=== PATIENT | male | born 1970 | race African-American/Black ===

== ENCOUNTER 2017-07-17 21:44 | Emergency (ER) | payer OTHER ==
[2017-07-17] MEDS ORDERED: KETOROLAC TROMETHAMINE 60 MG/2 ML SDV IM ONE (22:50)
[2017-07-17] MEDS ORDERED: OXYCODONE-ACETAMINOPHEN 5-325 MG TABLET PO ONE (22:51)
--- NOTE | 2017-07-17 22:58 | ER Document Report ---
ED General - General Chief Complaint: Toothache Stated Complaint: TOOTHACHE Time Seen by Provider: 07/17/17 22:19 Mode of Arrival: Ambulatory Information source: Patient, Relative TRAVEL OUTSIDE OF THE [place] IN LAST 30 DAYS: No - HPI Patient complains to provider of: Toothache Onset: Other - 3 days ago Onset/Duration: Gradual, Persistent, Worse Severity: Severe Associated symptoms: None Exacerbated by: Denies Relieved by: Denies Similar symptoms previously: No Recently seen / treated by doctor: No Notes: Patient is retired after 26 years. He recently moved here from [place]. He states he does not have a doctor or dentist here. Patient denies any allergies. He states he has pain to his right lower right tooth where he had a gold cap placed at least 4 years ago. No fevers no facial swelling - Related Data Allergies/Adverse Reactions: No Known Allergies Allergy (Unverified 07/17/17 21:47) Past Medical History - General Information source: Patient, Relative - Social History Smoking Status: Never Smoker Frequency of alcohol use: Social Drug Abuse: None Lives with: Family Family History: Reviewed & Not Pertinent Patient has suicidal ideation: No - Medical History Medical History: Negative Review of Systems - Review of Systems Constitutional: No symptoms reported EENT: No symptoms reported Cardiovascular: No symptoms reported Respiratory: No symptoms reported Gastrointestinal: No symptoms reported Genitourinary: No symptoms reported Male Genitourinary: No symptoms reported Musculoskeletal: No symptoms reported Skin: No symptoms reported Hematologic/Lymphatic: No symptoms reported Neurological/Psychological: No symptoms reported Physical Exam - Vital signs Vitals: Temp Pulse BP Pulse Ox 98.8 F 70 150/94 H 96 07/17/17 21:49 07/17/17 21:49 07/17/17 21:49 07/17/17 21:49 - Notes Notes: PHYSICAL EXAMINATION: GENERAL: Well-appearing, well-nourished and in no acute distress. HEAD: Atraumatic, normocephalic. EYES: Pupils equal round and reactive to light, extraocular movements intact, sclera anicteric, conjunctiva are normal. ENT: Nares patent, oropharynx clear without exudates. Moist mucous membranes. She has pain at tooth #30 it does have a cold. There is no gingival inflammation abscess formation or open wound. NECK: Normal range of motion, supple without lymphadenopathy LUNGS: Breath sounds clear to auscultation bilaterally and equal. No wheezes rales or rhonchi. HEART: Regular rate and rhythm without murmurs ABDOMEN: Soft, nontender, nondistended abdomen. No guarding, no rebound. No masses appreciated. Musculoskeletal: Normal range of motion, no pitting or edema. No cyanosis. NEUROLOGICAL: Cranial nerves grossly intact. Normal speech, normal gait. Normal sensory, motor exams PSYCH: Normal mood, normal affect. SKIN: Warm, Dry, normal turgor, no rashes or lesions noted. Course - Re-evaluation Re-evalutation: 07/17/17 23:22 Dr. Hanks did a dental block. Please see his note for details. - Vital Signs Vital signs: Temp Pulse Resp BP Pulse Ox 98.8 F 70 150/94 H 96 07/17/17 21:49 07/17/17 21:49 07/17/17 21:49 07/17/17 21:49 Discharge - Discharge Clinical Impression: Toothache Disposition: HOME, SELF-CARE Instructions: Oral Narcotic Medication ([facility]), Penicillin V K ([facility]), Toothache ( [facility]) Additional Instructions: If you have fevers, facial swelling or any other concerns. Please call Hal Hong and [facility] at [phone] for follow-up Prescriptions: Oxycodone HCl/Acetaminophen [Percocet 5-325 mg Tablet] 1 - 2 tab PO Q4H PRN 3 Days #20 tablet PRN Reason: Penicillin V Potassium [Penicillin Vk 500 mg Tablet] 500 mg PO QID 7 Days #28 tablet
[2017-07-17] MEDS ORDERED: BUPIVACAINE HCL 0.25% /EPINEPHRINE INJ/PF 30 ML SDV INFIL PRN (23:01)
[2017-07-17 23:46] VITALS: BP 152/82
[2017-07-18] MEDS ORDERED: HYDROCODONE/ACETAMINOPHEN 5-325 MG (6 TAB/ER DISP) PO PRN (05:00)
== END 2017-07-17 23:46 | disposition home or self-care (01) ==
LOC: ER 21:44
DX: K08.89 Other specified disorders of teeth and supporting structures (principal)
CPT/HCPCS: 99282; 96372; 64400; J3490; J1885